=== PATIENT | male | born 1965 | race Caucasian/White ===

== ENCOUNTER 2020-01-23 15:08 | Emergency (ER) | payer OTHER ==
[~2020-01-23] VITALS: Ht 170.2 cm; Wt 83.0 kg
[2020-01-23 15:12] VITALS: BP 141/84
[2020-01-23] MEDS ORDERED: LIDOCAINE-MPF 1%, 5ML ONE ×2 (15:39→15:53)
--- NOTE | 2020-01-23 15:59 | NUR ---
pt had zac placed by PA. Pt tolerated well.
[2020-01-23] MEDS ORDERED: LIDOCAINE-MPF 1%, 5ML INFIL ONE (16:00)
--- NOTE | 2020-01-23 16:01 | NUR ---
Patient/Caregiver given discharge instructions and they have confirmed that they understand the instructions. Patient ambulatory with steady gait.
== END 2020-01-23 16:03 | disposition home or self-care (01) ==
LOC: ED 15:45
DX: S01.01XA Laceration without foreign body of scalp, initial encounter (principal); X58.XXXA Exposure to other specified factors, initial encounter; Y93.89 Activity, other specified; Y92.009 Unspecified place in unspecified non-institutional (private) residence as the place of occurrence of the external cause; Y99.8 Other external cause status
CPT/HCPCS: 12001; 99282